=== PATIENT | male | born 1995 | race Two or more races ===

== ENCOUNTER 2021-04-17 17:03 | Emergency (ER) | payer OTHER ==
[~2021-04-17] VITALS: Ht 170.2 cm; Wt 67.7 kg
[2021-04-17 21:43] VITALS: BP 127/71
[2021-04-17 22:09] LABS: MONO REFLEX EBV COMP NEGATIVE (NEGATIVE)
[2021-04-19 16:17] LABS: EBV VIRAL CAPSID AG IgG >600.0 U/mL (0.0-17.9); EBV VIRAL CAPSID AG IgM <36.0 U/mL (0.0-35.9); Lyme Disease IgG/IgM Antibodie <0.91 ISR (0.00-0.90); Lyme Disease IgM Ab Quantitati <0.80 index (0.00-0.79)
== END 2021-04-17 21:47 | disposition home or self-care (01) ==
LOC: M ED 17:03
DX: J02.9 Acute pharyngitis, unspecified (principal)

== ENCOUNTER → 2021-06-01 | Outpatient (CLI) | payer OTHER ==
--- NOTE | 2021-06-01 12:48 | REP ---
INDICATION: PAIN OFF/ON X 1 YEAR LEFT WRIST. COMPARISON: None. TECHNIQUE: Four views FINDINGS: No acute fracture or destructive osseous lesion. IMPRESSION: No acute osseous abnormality. <Electronically signed by Aly Bills > 06/01/21 [id number]
== END ==
LOC: M RAD 12:14
PROVIDERS: ATTEND Physician Assistant
DX: M25.532 Pain in left wrist (principal)

== ENCOUNTER 2022-08-23 15:18 | Inpatient (IN) | payer OTHER ==
[~2022-08-23] VITALS: Ht 170.2 cm; Wt 69.5 kg
[2022-08-23 16:22] LABS: HEMATOCRIT 43.7 % (42.0-52.0); HEMOGLOBIN 14.3 g/dl (13.5-17.5); MEAN CORPUSCULAR HEMOGLOBIN 29.9 pg (27.0-33.0); MEAN CORPUSCULAR HGB CONC 32.7 g/dl (32.0-36.5); MEAN CORPUSCULAR VOLUME 91.2 fl (80.0-96.0); PLATELET COUNT, AUTOMATED 263 10^3/uL (150-450); RED BLOOD COUNT 4.79 10^6/uL (4.30-6.10); WHITE BLOOD COUNT 5.7 10^3/uL (4.0-10.0)
[2022-08-23 16:31] LABS: CANNABINOIDS URINE NEGATIVE (NEGATIVE); COCAINE METABOLITE URINE NEGATIVE (NEGATIVE); METHADONE URINE NEGATIVE (NEGATIVE); OPIATES URINE NEGATIVE (NEGATIVE); PHENCYCLIDINE URINE NEGATIVE (NEGATIVE)
[2022-08-23 16:32] LABS: AMPHETAMINES LEVEL URINE NEGATIVE (NEGATIVE); BARBITURATES URINE NEGATIVE (NEGATIVE); ETHYL ALCOHOL (ETHANOL) 0.003 % (0.000-0.010)
[2022-08-23 16:34] LABS: ACETAMINOPHEN LEVEL < 2.0 UG/ML (10.0-20.0); ALBUMIN 4.1 G/DL (3.2-5.2); ALKALINE PHOSPHATASE 68 U/L (46-116); ALT/SGPT 17 U/L (7.0-40); AST/SGOT 16 U/L (<34); BILIRUBIN,DIRECT 0.1 MG/DL (<0.4); BILIRUBIN,TOTAL 0.3 MG/DL (0.3-1.2); BLOOD UREA NITROGEN 13 MG/DL (9-23); CALCIUM LEVEL 8.9 MG/DL (8.5-10.1); CARBON DIOXIDE LEVEL 26 MMOL/L (20-31); CHLORIDE LEVEL 107 MMOL/L (98-107); GLOMERULAR FILTRATION RATE > 60.0 (>60); GLUCOSE, FASTING 97 MG/DL (60-100); POTASSIUM SERUM 4.2 MMOL/L (3.5-5.1); SALICYLATE LEVEL < 3.0 MG/DL (<30); SODIUM LEVEL 141 MMOL/L (136-145)
[2022-08-23 16:35] LABS: BENZODIAZEPINES URINE NEGATIVE (NEGATIVE)
[2022-08-23 16:38] LABS: THYROID STIMULATING HORMONE 0.936 uIU/ML (0.55-4.78)
[2022-08-23 16:39] LABS: RSV AMPLIFICATION NEGATIVE (NEGATIVE)
[2022-08-23] MEDS ORDERED: [UNRECOGNIZED DRUG - CODE] OU (19:37)
[2022-08-23] MEDS ORDERED: HOME MED LIST COMPLETE! XX SCH (19:40)
[2022-08-23] MEDS ORDERED: OLANZapine ORAL DISINTEGRATING TAB 5MG PO ONE (19:55)
[2022-08-24] MEDS ORDERED: POLYVINYL ALCOHOL OPHTH SOLN 15ML (LIQUITEARS) OU PRN (18:45)
[2022-08-25] MEDS ORDERED: MAALOX 30 ML SUSP *UDC PO PRN (22:30)
[2022-08-25] MEDS ORDERED: OLANZapine ORAL DISINTEGRATING TAB 5MG PO PRN (22:30)
[2022-08-25] MEDS ORDERED: MOM 30ML SUSPENSION UDC PO PRN (22:30)
[2022-08-25 23:20] VITALS: BP 122/79
[2022-08-26 06:34] VITALS: BP 118/66
[2022-08-26] MEDS: NICOTINE 21MG/24HR 1 EA TRANSDERMAL TD SCH (08:34)
[2022-08-26] MEDS: FLUOROMETHOLONE 0.1% OPHTH SUSP 5ML BTL OU SCH ×2 (11:36→21:52)
[2022-08-26 17:36] VITALS: BP 127/76
[2022-08-26] MEDS: POLYVINYL ALCOHOL OPHTH SOLN 15ML (LIQUITEARS) OU PRN (17:46)
[2022-08-26] MEDS: traZODone 50 MG TAB PO PRN (21:52)
[2022-08-26] MEDS: ASCORBIC ACID 500 MG TAB PO SCH (21:52)
[2022-08-27] MEDS: ACETAMINOPHEN TAB 650MG DOSE (2X325MG) PO PRN ×3 (06:31→20:37)
[2022-08-27 06:44] VITALS: BP 112/59
[2022-08-27] MEDS: FLUOROMETHOLONE 0.1% OPHTH SUSP 5ML BTL OU SCH ×2 (08:25→20:37)
[2022-08-27] MEDS: ASCORBIC ACID 500 MG TAB PO SCH ×2 (08:25→20:37)
[2022-08-27] MEDS: NICOTINE 21MG/24HR 1 EA TRANSDERMAL TD SCH (09:00)
[2022-08-27] MEDS: POLYVINYL ALCOHOL OPHTH SOLN 15ML (LIQUITEARS) OU PRN (12:49)
[2022-08-27 16:36] VITALS: BP 130/81
[2022-08-27] MEDS: FLUTICASONE PROP 0.05% NASAL SPRAY 16 GM (FLONASE) NARES PRN (20:43)
[2022-08-28] MEDS: traZODone 50 MG TAB PO PRN (01:06)
[2022-08-28] MEDS ORDERED: IBUPROFEN 400MG TAB PO PRN (01:50)
[2022-08-28 06:02] VITALS: BP 105/63
[2022-08-28] MEDS: NICOTINE 21MG/24HR 1 EA TRANSDERMAL TD SCH (09:00)
[2022-08-28] MEDS: ASCORBIC ACID 500 MG TAB PO SCH ×2 (09:28→21:27)
[2022-08-28] MEDS: FLUOROMETHOLONE 0.1% OPHTH SUSP 5ML BTL OU SCH (09:28)
[2022-08-28] MEDS: ACETAMINOPHEN TAB 650MG DOSE (2X325MG) PO PRN ×2 (10:12→22:02)
[2022-08-28] MEDS ORDERED: TOPIRAMATE (TopAMAX) 25 MG TAB PO PRN (13:35)
[2022-08-28] MEDS ORDERED: EXCEDRIN MIGRAINE TABLET PO PRN (14:00)
[2022-08-28] MEDS: SERTRALINE HCL 25 MG TABLET PO SCH (14:17)
[2022-08-28 18:26] VITALS: BP 148/93
[2022-08-28 18:40] LABS: HEPATITIS B SURFACE ANTIGEN NEGATIVE (NEGATIVE)
[2022-08-28 18:53] LABS: HIV 1&2 SCREEN CENTAUR NEGATIVE (NEGATIVE)
[2022-08-28 19:02] LABS: HEPATITIS B CORE ANTIBODY IGM NEGATIVE (NEGATIVE); HEPATITIS C VIRUS ABY INDEX 0.1 INDEX (<0.8)
[2022-08-28] MEDS: AUGMENTIN 500MG TAB PO SCH (21:27)
[2022-08-28] MEDS: DOXYCYCLINE HYCLATE 100MG TABLET PO SCH (21:27)
[2022-08-28] MEDS: FLUTICASONE PROP 0.05% NASAL SPRAY 16 GM (FLONASE) NARES PRN (21:27)
[2022-08-29 06:02] VITALS: BP 133/79
[2022-08-29 06:18] VITALS: BP 133/79
[2022-08-29] MEDS: NICOTINE 21MG/24HR 1 EA TRANSDERMAL TD SCH (09:00)
[2022-08-29] MEDS: FLUOROMETHOLONE 0.1% OPHTH SUSP 5ML BTL OU SCH (10:02)
[2022-08-29] MEDS: ASCORBIC ACID 500 MG TAB PO SCH ×2 (10:02→23:06)
[2022-08-29] MEDS: DOXYCYCLINE HYCLATE 100MG TABLET PO SCH ×2 (10:02→23:06)
[2022-08-29] MEDS: SERTRALINE HCL 25 MG TABLET PO SCH (10:02)
[2022-08-29] MEDS: AUGMENTIN 500MG TAB PO SCH ×2 (10:03→23:06)
[2022-08-29 18:36] VITALS: BP 153/92
[2022-08-29] MEDS: traZODone 50 MG TAB PO PRN (23:06)
[2022-08-30] MEDS: FLUTICASONE PROP 0.05% NASAL SPRAY 16 GM (FLONASE) NARES PRN (00:24)
[2022-08-30 06:53] VITALS: BP 103/64
[2022-08-30] MEDS: POLYVINYL ALCOHOL OPHTH SOLN 15ML (LIQUITEARS) OU PRN (06:54)
[2022-08-30] MEDS: NICOTINE 21MG/24HR 1 EA TRANSDERMAL TD SCH (09:00)
[2022-08-30] MEDS: AUGMENTIN 500MG TAB PO SCH (10:40)
[2022-08-30] MEDS: DOXYCYCLINE HYCLATE 100MG TABLET PO SCH (10:40)
[2022-08-30] MEDS: SERTRALINE HCL 25 MG TABLET PO SCH (10:40)
[2022-08-30] MEDS: FLUOROMETHOLONE 0.1% OPHTH SUSP 5ML BTL OU SCH (10:40)
[2022-08-30] MEDS: ASCORBIC ACID 500 MG TAB PO SCH (10:40)
[2022-08-30] MEDS ORDERED: FLUO1OPD OU (11:21)
[2022-08-30] MEDS ORDERED: ASCO50TA PO (11:21)
[2022-08-30] MEDS ORDERED: SERT25TA21 PO (11:21)
[2022-08-30] MEDS ORDERED: AMOX500T2 PO (11:21)
[2022-08-30] MEDS ORDERED: NICO21PAT TD (11:21)
[2022-08-30] MEDS ORDERED: TRAZ-252 PO (11:21)
[2022-08-30] MEDS ORDERED: DOXY100T PO (11:21)
== END 2022-08-30 13:48 | disposition home or self-care (01) | DRG 882 ==
LOC: M ED 16:07 → M ED INP 08-25 22:28 → M PSY 08-25 22:54
PROVIDERS: ADMIT Student in an Organized Health Care Education/Training Program; ATTEND Student in an Organized Health Care Education/Training Program
DX: F43.10 Post-traumatic stress disorder, unspecified (principal); U07.1 COVID-19; G43.909 Migraine, unspecified, not intractable, without status migrainosus; F41.1 Generalized anxiety disorder; Z79.899 Other long term (current) drug therapy

== ENCOUNTER 2022-11-09 11:55 | Day surgery (SDC) | payer OTHER ==
[~2022-11-09] VITALS: Ht 170.2 cm; Wt 69.6 kg
[~2022-11-09 11:55] MED LIST: AMOX500C PO; AMOX500T2 PO; ARIP1TAB4 PO; ASCO50TA PO; DOXY100T PO; EMTR1TAB3 PO; FLUO1OPD OU; GABA-1171 PO; NICO21PAT TD; SERT25TA21 PO; TRAZ-252 PO; [UNRECOGNIZED DRUG - CODE] OU
[2022-11-09] MEDS ORDERED: LR 1,000 ML IV SCH ×2 (12:05→16:20)
[2022-11-09] MEDS ORDERED: LIDOCAINE 2% 100MG/5ML SDV (FOR ANES.) As Ordered ONE (14:14)
[2022-11-09] MEDS ORDERED: BUPIVACAINE/EPIN 0.5% 30ML VIAL As Ordered ONE (14:17)
[2022-11-09] MEDS ORDERED: OXYMETAZOLINE 0.05% NASAL SPRAY (AFRIN) As Ordered ONE (14:18)
[2022-11-09] MEDS ORDERED: propofoL 200 MG/20 ML VIAL As Ordered ONE (14:19)
[2022-11-09] MEDS ORDERED: ROCURONIUM BROMIDE 50MG/5ML VIAL As Ordered ONE (14:20)
[2022-11-09] MEDS ORDERED: fentaNYL 100 MCG/2 ML INJECTION As Ordered ONE ×2 (14:21→14:51)
[2022-11-09] MEDS ORDERED: MIDAZOLAM INJ 2MG/2ML VIAL As Ordered ONE (14:22)
[2022-11-09] MEDS ORDERED: ONDANSETRON 4MG 2ML VIAL As Ordered ONE (14:50)
[2022-11-09] MEDS ORDERED: GLYCOPYRROLATE INJ 0.2 MG/ML 2 ML VIAL As Ordered ONE (15:16)
[2022-11-09] MEDS ORDERED: SUGAMMADEX SODIUM 500 MG/5 ML VIAL (BRIDION) As Ordered ONE (15:17)
[2022-11-09] MEDS ORDERED: fentaNYL 100 MCG/2 ML INJECTION IV PRN (15:25)
[2022-11-09] MEDS ORDERED: ONDANSETRON 4MG 2ML VIAL IV PRN ×2 (15:25→16:20)
[2022-11-09] MEDS ORDERED: oxyCODONE 5MG TAB PO PRN (15:25)
[2022-11-09] MEDS ORDERED: MORPHINE 2 MG/ML 1ML VIAL IV PRN (15:25)
[2022-11-09] MEDS ORDERED: HYDROcodone/APAP LIQUID 7.5-325MG 15ML UDC (LORTAB ELIXIR) PO PRN (16:20)
[2022-11-09 16:50] VITALS: BP 138/77
== END 2022-11-09 16:53 | disposition home or self-care (01) ==
LOC: M SDC 11:55
PROVIDERS: ATTEND Otolaryngology
DX: J35.03 Chronic tonsillitis and adenoiditis (principal); F43.10 Post-traumatic stress disorder, unspecified; F41.9 Anxiety disorder, unspecified; F32.A Depression, unspecified; Z79.899 Other long term (current) drug therapy; Z87.891 Personal history of nicotine dependence
CPT/HCPCS: 42821; 88302; J1100; J2250; J2405; J3010; S0020

== ENCOUNTER 2023-09-11 15:30 | Emergency (ER) | payer OTHER ==
[~2023-09-11] VITALS: Ht 170.2 cm; Wt 79.4 kg
[~2023-09-11 15:30] MED LIST changes: +[UNRECOGNIZED DRUG - CODE] OU; -[UNRECOGNIZED DRUG - CODE] OU
[2023-09-11] MEDS ORDERED: LURA40TA2 PO (15:51)
[2023-09-11] MEDS ORDERED: PRED20TA PO (15:51)
[2023-09-11] MEDS ORDERED: CAPS0.022 (15:51)
[2023-09-11] MEDS ORDERED: DICL100G10 (15:51)
[2023-09-11] MEDS ORDERED: TRAZ-252 PO (15:51)
[2023-09-11] MEDS ORDERED: TIZA10TA PO (15:51)
[2023-09-11] MEDS: ACETAMINOPHEN 500 MG TAB PO ONE (18:27)
[2023-09-11 18:55] LABS: BASO # 0.1 10^3/uL (0.0-0.2); BASO % 0.5 % (0.0-1.0); EOS # 0.1 10^3/uL (0.0-0.5); EOS % 1.4 % (0.0-3.0); HEMATOCRIT 42.6 % (42.0-52.0); LYMPH # 3.8 10^3/uL (1.5-5.0); LYMPH % 39.8 % (24.0-44.0); MEAN CORPUSCULAR HGB CONC 32.9 g/dl (32.0-36.5); MEAN CORPUSCULAR VOLUME 91.2 fl (80.0-96.0); MONO # 0.6 10^3/uL (0.0-0.8); MONO % 5.8 % (2.0-8.0); NEUTROPHILS % 52.1 % (36.0-66.0); PLATELET COUNT, AUTOMATED 243 10^3/uL (150-450); RED BLOOD COUNT 4.67 10^6/uL (4.30-6.10); WHITE BLOOD COUNT 9.7 10^3/uL (4.0-10.0)
[2023-09-11 19:15] LABS: CK-MB VALUE MASS < 1.0 NG/ML (<3.6)
[2023-09-11 19:17] LABS: BLOOD UREA NITROGEN 17 MG/DL (9-23); CALCIUM LEVEL 8.5 MG/DL (8.5-10.1); CARBON DIOXIDE LEVEL 28 MMOL/L (20-31); CHLORIDE LEVEL 108 MMOL/L (98-107); CREATININE FOR GFR 0.97 MG/DL (0.70-1.30); GLOMERULAR FILTRATION RATE > 60.0 (>60); GLUCOSE, FASTING 91 MG/DL (60-100); POTASSIUM SERUM 3.6 MMOL/L (3.5-5.1); SODIUM LEVEL 142 MMOL/L (136-145)
[2023-09-11 19:20] LABS: FREE T4 1.31 NG/DL (0.89-1.76); THYROID STIMULATING HORMONE 2.469 uIU/ML (0.55-4.78)
[2023-09-11 19:22] LABS: CPK CREATINE PHOSPHOKINASE 74 U/L (46-171); MB/CK RELATIVE INDEX 1.35 (< OR =4)
[2023-09-11 19:23] LABS: RSV AMPLIFICATION NEGATIVE (NEGATIVE)
[2023-09-11 20:43] LABS: CK-MB VALUE MASS < 1.0 NG/ML (<3.6)
[2023-09-11 20:46] LABS: CPK CREATINE PHOSPHOKINASE 77 U/L (46-171); MB/CK RELATIVE INDEX 1.29 (< OR =4)
[2023-09-11] MEDS ORDERED: HOME MED LIST COMPLETE! XX SCH (20:50)
[2023-09-11] MEDS ORDERED: MEDR4PAK PO (21:22)
[2023-09-11] MEDS ORDERED: ALBU6.7H6 INH (21:22)
[2023-09-11 21:33] VITALS: BP 135/86; TEMP 99.2; O2SAT 99
== END 2023-09-11 21:44 | disposition home or self-care (01) ==
LOC: M ED 15:30
DX: J20.9 Acute bronchitis, unspecified (principal); R07.9 Chest pain, unspecified; R00.1 Bradycardia, unspecified; F43.10 Post-traumatic stress disorder, unspecified; F51.01 Primary insomnia; F10.10 Alcohol abuse, uncomplicated; Z79.52 Long term (current) use of systemic steroids; Z79.1 Long term (current) use of non-steroidal anti-inflammatories (NSAID); Z79.899 Other long term (current) drug therapy